=== PATIENT | male | born 1985 | race Caucasian/White ===

== ENCOUNTER 2017-03-09 19:06 | Emergency (ER) | payer OTHER ==
[2017-03-09] MEDS ORDERED: HYDROcod/ACETAM 5/325 MG TABLET PO STA (19:28)
--- NOTE | 2017-03-09 19:31 | ED Physician Documentation ---
PD HPI LOWER EXT INJURY - Stated complaint Stated Complaint: R FOOT INJ - Chief complaint Chief Complaint: Ext Problem - History obtained from History obtained from: Patient - History of Present Illness PD HPI LOW EXT INJURY LOCATION: Other (Sprinting tonight playing football and felt a pop in the area of the right Achilles tendon and now cannot walk or bear weight.) Review of Systems Constitutional: reports: Reviewed and negative Throat: reports: Reviewed and negative Cardiac: reports: Reviewed and negative PD PAST MEDICAL HISTORY - Past Medical History Past Medical History: No - Past Surgical History Past Surgical History: No - Present Medications Home Medications: Ambulatory Orders Medication Instructions Recorded Confirmed HYDROcod/ACETAM 5/325 [[place] 5/325] 1 - 2 ea PO Q6H PRN #10 tablet 03/09/17 - Allergies Allergies/Adverse Reactions: Allergies Allergy/AdvReac Type Severity Reaction Status Date / Time No Known Drug Allergies Allergy Verified 03/09/17 19:12 - Social History Does the pt smoke?: Yes Smoking Status: Current every day smoker Does the pt drink ETOH?: No Does the pt have substance abuse?: No - Immunizations Immunizations are current?: Yes - POLST Patient has POLST: No PD ED PE NORMAL - Vitals Vital signs reviewed: Yes - General General: Alert and oriented X 3, No acute distress, Well developed/nourished - Extremities Extremities: Other (He has pain with palpation of the Achilles tendon and no action with the Ross's test, no bony tenderness about the ankle. Normal pedal pulses.) - Neuro Neuro: Alert and oriented X 3, Normal speech - Psych Psych: Normal mood, Normal affect Results - Vitals Vitals: Vital Signs - 24 hr 03/09/17 19:10 Temperature 35.6 C L Heart Rate 120 H Respiratory 18 Rate Blood Pressure 145/99 H O2 Saturation 97 Oxygen O2 Source Room air Procedures - Splint (location) Right ankle Splint applied by: Tech Type of splint: Fiberglass, Short leg, Posterior, Other (In some plantarflexion) Other: Patient tolerated well, No complications, Neurovascular intact, Crutches provided Departure - Departure Disposition: 01 Home, Self Care Clinical Impression: Rupture of right Achilles tendon Qualifiers: Encounter type: initial encounter Qualified Code(s): S86.011A - Strain of right Achilles tendon, initial encounter Condition: Good Record reviewed to determine appropriate education?: Yes Instructions: ED Tendon Rupture Achilles Prescriptions: HYDROcod/ACETAM 5/325 [[place] 5/325] 1 - 2 ea PO Q6H PRN #10 tablet PRN Reason: Pain Comments: [place] Keep the splint on and dry until you follow-up, do not walk or bear weight on the right leg. Do not drink or drive while taking narcotic pain medication. Note that many narcotic pain relievers also contain Tylenol/acetaminophen. Please ensure that your total dose of acetaminophen from all sources does not exceed 3 g (3000 mg) per day. You may get constipated while on this medication. Take a stool softener such as Colace twice a day while you are on it. Also add an [id number]-[id number] laxative such as senna or MiraLAX on any day that you do not have a bowel movement. If you received a narcotic pain medication or sedative while in the emergency department, do not drive for the next 24 hours. Your blood pressure was elevated today on check into the emergency department. This does not mean that you have hypertension, it is a common phenomenon to come to the emergency department and have elevated blood pressure. I recommend that she see your primary care physician within the week to have it rechecked when you are feeling better.
[2017-03-09] MEDS ORDERED: HYDROcod/ACETAM 5/325 MG TABLET ONE (19:35)
[2017-03-09 19:53] VITALS: BP 135/94
== END 2017-03-09 19:53 | disposition home or self-care (01) ==
LOC: ED 19:06
DX: S86.011A Strain of right Achilles tendon, initial encounter (principal); X58.XXXA Exposure to other specified factors, initial encounter; Y93.02 Activity, running; Y93.61 Activity, american tackle football; R03.0 Elevated blood-pressure reading, without diagnosis of hypertension; F17.200 Nicotine dependence, unspecified, uncomplicated
CPT/HCPCS: 29515; 99283; 99284; A9270

== ENCOUNTER 2017-03-20 09:15 | Day surgery (SDC) | payer OTHER ==
[~2017-03-20 09:15] MED LIST: ACETAMINOPHEN 1,000 MG/100 ML 100 ML IV ONE; LACTATED RINGERS 1,000 ML IV ONE; ceFAZolin 2 GM/50 ML 2 GM/50 ML BAG IV ONE
[2017-03-20] MEDS ORDERED: BUPIVACAINE 0.25% PF 30 ML VIAL SUBQ ONE ×2 (14:34)
[2017-03-20] MEDS ORDERED: ROCURONIUM 50 MG/5 ML VIAL IVP ONE (15:00)
[2017-03-20] MEDS ORDERED: KETOROLAC 30 MG/ML VIAL IVP ONE (15:00)
[2017-03-20] MEDS ORDERED: ONDANSETRON 4 MG/2 ML VIAL IVP ONE (15:00)
[2017-03-20] MEDS ORDERED: LIDOCAINE-MPF 2% 5 ML VIAL IM ONE (15:00)
[2017-03-20] MEDS ORDERED: ACETAMINOPHEN 1,000 MG/100 ML 100 ML IV ONE (15:00)
[2017-03-20] MEDS ORDERED: DEXAMETHASONE 4 MG/ML VIAL IVP ONE (15:00)
[2017-03-20] MEDS ORDERED: fentaNYL 100 MCG/2 ML VIAL IVP ONE (15:00)
[2017-03-20] MEDS ORDERED: SUCCINYLCHOLINE 200 MG/10 ML VIAL IVP ONE (15:00)
[2017-03-20] MEDS ORDERED: MIDAZOLAM 2 MG/2 ML VIAL IVP ONE (15:00)
[2017-03-20] MEDS ORDERED: PROPOFOL 200 MG/20 ML VIAL IVP ONE (15:00)
[2017-03-20] MEDS ORDERED: LACTATED RINGERS 1,000 ML IV ONE (15:11)
[2017-03-20] MEDS: HYDROmorphone 1 MG/ML AMP ONE ×2 (17:05→17:10)
[2017-03-20] MEDS ORDERED: HYDROmorphone 1 MG/ML AMP ONE (17:20)
[2017-03-20] MEDS ORDERED: fentaNYL 100 MCG/2 ML VIAL ONE (17:20)
[2017-03-20] MEDS ORDERED: ONDANSETRON 4 MG/2 ML VIAL ONE (17:20)
[2017-03-20] MEDS ORDERED: oxyCODONE 5 MG TABLET ONE (17:48)
[2017-03-20 17:56] VITALS: BP 129/86
--- NOTE | 2017-03-21 07:11 | OPERATIVE REPORT ---
DATE OF SURGERY: 03/20/2017 00:00:00 PREOPERATIVE DIAGNOSIS: Right Achilles tendon rupture. POSTOPERATIVE DIAGNOSIS: Right Achilles tendon rupture. NAME OF PROCEDURE: Right Achilles tendon repair, CPT 37010. SURGEON: Jose Luis Byrd MD POSTOPERATIVE PLAN: Same-day surgery discharge. Nonweightbearing, in splint for 2 weeks. Transition t o oliverio and Lars protocol. INDICATION FOR SURGERY: This is a 31-year-old male, who sustained the above injury on the Feb while playing flag football. He was provisionally treated by the emergency room with a splint in neutral. I discussed operative and nonoperative management with the patient. The risks of surgery include pain, bleeding, infection, damage to nearby structures, lack of symptom relief, the need for further procedures, and wound healing complications. The benefits of this surgery would be to decreas e the re-rupture rate, with increased strength. The specific risks for the surgery are wound healing complications, implant complications, and infection. The patient is young and healthy, and is a forme r smoker, and he opted for surgical management. EXAMINATION UNDER ANESTHESIA: Resting posture 10 degrees of dorsiflexion, compared to 10 degrees of p lantar flexion on the contralateral side. No plantar flexion was produced with squeezing the calf com pared to 15 degrees of plantar flexion produced with squeezing the contralateral calf. A small sulcus was felt near the musculotendinous junction. SURGICAL FINDINGS: Complete rupture of the Achilles tendon 2 cm from the musculotendinous junction. IMPLANTS: 1. Suture tape x2 by [employer]. 2. SwiveLock x2 by [employer]. ANESTHESIA: General. ANTIBIOTICS: Weight-based Ancef. ESTIMATED BLOOD LOSS: 5 mL. URINE OUTPUT: Not recorded. INTRAVENOUS FLUIDS: 1 liter. TOURNIQUET TIME: 80 minutes at 250 mmHg. SPECIMENS: None. COMPLICATIONS: None. DISPOSITION: Stable to PACU. DVT PROPHYLAXIS: 325 mg of aspirin daily for 28 days. Early frequent ambulation. SCD while in the [facility]. PROCEDURE IN DETAIL: The patient was met in the preoperative hold area on the day of the procedure. T he operative site was signed, and consent was verified. He desired to proceed. He was brought to the operating room and surrendered to anesthesia. Once general anesthesia had been obtained, he was place d in the prone position, and all bony prominences were well padded. The arms were placed in a comfort able position. The contralateral limb was available for assessment during the procedure under the kait pes. An examination under anesthesia was performed. The limb was prepped and draped in the standard steril e fashion. A surgical time-out was held, where we confirmed the patient's identity, procedure, allerg ies, antibiotics, and images. All were in agreement, and we proceeded. An Esmarch was used to exsangu inate the limb, and the tourniquet was elevated to 250 mmHg. A 6 cm incision was made 1 cm medial to the midline over the Achilles tendon. Sharp dissection was brought down to the paratenon, and it was entered without disrupting the overlying tissue. The tenosynovium was dissected, and the tendons were circumferentially dissected with a finger. The tear was identified, and unhealthy tissue was debride d. Suture tape was placed in a Gutiérrez fashion, with 4 bites up and 4 bites down. A total of 2 strand s were used, leaving 4 strands coming out of the proximal tendon. The location of the tear was quite proximal, so the sutures needed to be placed on the dorsal aspect of the tendon, leaving the muscle f ree on the volar aspect. Two stab incisions were made over the heel, 1.5 cm apart from each other down to bone. Blunt dissecti on was carried out to spread the soft tissue. The banana suture passer was then placed through the di stal stump of the Achilles tendon, coming out one on the left and one on the right, essentially withi n the tendon itself. The previously placed sutures from the proximal remnant were passed through this location. A bump was placed under the toe to allow the foot to rest in a plantar flexed position and to directly oppose the 2 tendons stumps. Tension was held at 10 degrees more than the contralateral side in the resting position. I then drilled, tapped, and placed 2 SwiveLocks in the heel, holding te nsion as indicated above. Ross test had been restored. 0 Vicryl was placed in a Silf[place] fas hion in an epitendinous suture. The peritenon was then fenestrated volarly, laterally, and medially t o allow for a posterior closure. The wound was then irrigated copiously. The peritenon was closed wit h 0 Vicryl in a running fashion. The subdermal tissue was closed with 2-0 Vicryl, and the skin was cl osed with a nylon in a vertical mattress. The 2 stab incisions were closed with vertical mattresses. 20 mL of 0.25% Marcaine without epinephrine were placed around the wound. A sterile dressing was appl ied, and a splint was placed with the foot in a plantarflexed posture. The patient was awakened and t ransferred to the recovery room without issue. JOB #: [id number] EXT JOB #:[id number]
== END 2017-03-20 09:16 | disposition home or self-care (01) ==
LOC: SDS 09:15
PROVIDERS: ATTEND Orthopaedic Surgery
PROC: 0LQN0ZZ Repair Right Lower Leg Tendon, Open Approach (ICD-10-PCS; principal; 2017-03-20 11:00)
DX: S86.011A Strain of right Achilles tendon, initial encounter (principal); F17.210 Nicotine dependence, cigarettes, uncomplicated
CPT/HCPCS: 27650; A9270; C1713; J0131; J0690; J1170; J7120

== ENCOUNTER 2017-07-14 19:02 | Emergency (ER) | payer OTHER ==
[2017-07-14 19:21] VITALS: BP 146/105
[2017-07-14] MEDS ORDERED: DEXAMETHASONE 10 MG/ML VIAL PO STA (20:23)
[2017-07-14] MEDS ORDERED: FAMOTIDINE 20 MG TABLET PO STA (20:23)
[2017-07-14] MEDS ORDERED: diphenhydrAMINE 25 MG CAPSULE PO STA (20:23)
--- NOTE | 2017-07-14 20:24 | ED Physician Documentation ---
PD HPI SKIN - Stated complaint Stated Complaint: RASH - Chief complaint Chief Complaint: Allergic Rx - History obtained from History obtained from: Patient - History of Present Illness Timing - onset: How many days ago (2) Timing - details: Gradual onset Location: [place] Quality / character: Itchy, Raised Associated symptoms: No: Fever, Myalgias, Joint pain, Headache, Facial swelling , Dyspnea, Abd pain, N/V/D Similar symptoms before: Work up / diagnostics Recently seen: Clinic - Additional information Additional information: Patient is a 32 year old male presenting to the emergency department for an allergic reaction. Patient states that this weekend he was outside at a park with his son, a few hours later patient developed a rash. Patient followed up with his doctor and was started on prednisone and atarax. Patient states that it got a bit better but his symptoms came back so he came to the emergency department for evaluation. Review of Systems Constitutional: denies: Fever, Chills Eyes: denies: Decreased vision Ears: reports: Reviewed and negative Nose: reports: Reviewed and negative Throat: reports: Reviewed and negative Cardiac: denies: Chest pain / pressure Respiratory: denies: Dyspnea, Cough, Wheezing GI: denies: Abdominal Pain, Nausea, Vomiting : reports: Reviewed and negative Skin: reports: Rash Neurologic: reports: Reviewed and negative Psychiatric: reports: Reviewed and negative Immunocompromised: reports: Reviewed and negative PD PAST MEDICAL HISTORY - Past Medical History Cardiovascular: None Respiratory: None Endocrine/Autoimmune: None GI: None : None HEENT: None Psych: None Musculoskeletal: Other Derm: None - Past Surgical History Past Surgical History: No General: Appendectomy - Present Medications Home Medications: Ambulatory Orders Medication Instructions Recorded Confirmed No Known Home Medications [No 07/14/17 07/14/17 Known Home Medications] - Allergies Allergies/Adverse Reactions: Allergies Allergy/AdvReac Type Severity Reaction Status Date / Time No Known Drug Allergies Allergy Verified 07/14/17 19:21 - Social History Does the pt smoke?: Yes Smoking Status: Current every day smoker Does the pt drink ETOH?: No Does the pt have substance abuse?: No - Immunizations Immunizations are current?: Yes - POLST Patient has POLST: No PD ED PE NORMAL - Vitals Vital signs reviewed: Yes - General General: Alert and oriented X 3, No acute distress - HEENT HEENT: Atraumatic, PERRL, Moist mucous membranes, Pharynx benign - Neck Neck: Supple, no meningeal sign - Cardiac Cardiac: RRR, No murmur - Respiratory Respiratory: No respiratory distress, Clear bilaterally - Abdomen Abdomen: Non distended - Extremities Extremities: Normal ROM s pain, No edema - Neuro Neuro: Alert and oriented X 3, No motor deficit, No sensory deficit, Normal speech - Psych Psych: Normal mood PD ED PE EXPANDED - HEENT HEENT: Other (no tongue or soft tissue swelling) - Respiratory Respiratory: No: Accessory mm use, Retractions, Wheezing - Derm Derm: Rash, Urticaria (diffusely on trunk and upper extremities) Results - Vitals Vitals: Vital Signs - 24 hr 07/14/17 19:18 Temperature 36.8 C Heart Rate 101 H Respiratory 18 Rate Blood Pressure 146/105 H O2 Saturation 97 Oxygen O2 Source Room air PD MEDICAL DECISION MAKING - ED course Complexity details: reviewed old records, reviewed results, re-evaluated patient , considered differential, d/w patient ED course: Patient was seen and examined at bedside. Patient had generalized uticaria but no airway involvement. Patient was offered epinephrine but stated that he did not want it, and did not want to wait to be observed. Patient was treated with decadron, benadryl and pepcid with moderate relief. Patient required no further inpatient work up or testing and was stable for discharge with outpatient follow up. Departure - Departure Disposition: 01 Home, Self Care Clinical Impression: Allergic urticaria Condition: Good Instructions: ED Allergic Reaction General Other Follow-Up: Sanjuana Rodriguez ARNP [Primary Care Provider] - Within 3 Days Comments: Your symptoms today are being caused by an allergic reaction. It is difficult to say what it causing it exactly. You should continue with the steroids that have been prescribed and you can take benadryl and pepcid along with it. Ultimately you will need to follow up with your primary care doctor and possibly an construction mgr for further testing. Discharge Date/Time: 07/14/17 20:56
== END 2017-07-14 20:56 | disposition home or self-care (01) ==
LOC: ED 19:02
DX: L50.0 Allergic urticaria (principal); F17.200 Nicotine dependence, unspecified, uncomplicated
CPT/HCPCS: 99283; A9270

== ENCOUNTER 2019-04-08 16:31 | Emergency (ER) | payer OTHER ==
[2019-04-08 16:38] VITALS: BP 153/105
--- NOTE | 2019-04-08 16:53 | ED Physician Documentation ---
History of Present Illness - Stated complaint Stated Complaint: L EYE INJURY - Chief complaint Chief Complaint: Heent - Additonal information Additional information: This is a 33 year old male who Presents with irritation of his left eye. 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 He looked in the mirror and saw a small spot on his eye, and he was unable to remove it by flushing it so he presents here. He denies any change in his vision, no history of eye problems. He does not remember anything flying into the eye. he does not wear contacts. Review of Systems Constitutional: denies: Fever Eyes: reports: Irritation PD PAST MEDICAL HISTORY - Past Medical History Past Medical History: Yes Cardiovascular: None Respiratory: None Endocrine/Autoimmune: None GI: None : None HEENT: None Psych: None Musculoskeletal: Other Derm: None - Past Surgical History Past Surgical History: No General: Appendectomy - Present Medications Home Medications: Ambulatory Orders Medication Instructions Recorded Confirmed Erythromycin Base [Erythromycin 3.5 gm TOP QID 7 Days #1 tube 04/08/19 Ophthalmic Ointment] - Allergies Allergies/Adverse Reactions: Allergies Allergy/AdvReac Type Severity Reaction Status Date / Time No Known Drug Allergies Allergy Verified 04/08/19 16:38 - Social History Does the pt smoke?: Yes Smoking Status: Current every day smoker Does the pt drink ETOH?: No Does the pt have substance abuse?: No - Immunizations Immunizations are current?: Yes - POLST Patient has POLST: No PD ED PE NORMAL - Vitals Vital signs reviewed: Yes - General General: Alert and oriented X 3 - HEENT HEENT: Other (In the left eye in the approximate the 5 o'clock position from the pupil on the lower iris there is a less than 1 mm rust ring. Fluorescein stain reveals a small corneal abrasion around this resting, no River sign, no other areas of focal uptake. Extraocular muscles are intact. Visual acuity is normal. Eversion of the eyelid reveals no foreign body. With proparacaine drops patient's pain left eye resolved.) - Respiratory Respiratory: No respiratory distress - Extremities Extremities: No deformity - Neuro Neuro: Alert and oriented X 3 - Psych Psych: Normal mood, Normal affect Results - Vitals Vitals: Vital Signs - 24 hr 04/08/19 16:36 Temperature 36.5 C Heart Rate 78 Respiratory 20 Rate Blood Pressure 153/105 H O2 Saturation 98 Oxygen O2 Source Room air Procedures - General procedure General procedure: Corneal foreign body removal: After discussing the risks with patient including damage to the globe and cornea, proparacaine was instilled in the left eye and using a slit lamp and a 22-gauge needle, the rest ring was gently scraped. The bottom portion of the rest ring removed easily, however the top half remained in place, and in order to avoid damaging the cornea no further attempts were made to remove this. Erythromycin ointment was applied. He tolerated the procedure well, with no immediate complications. PD MEDICAL DECISION MAKING - ED course Complexity details: considered differential (Corneal foreign body, corneal abrasion, foreign body in the eyelid, ulcer, globe rupture) ED course: On exam patient has an obvious rust ring over the cornea overlying the left lower iris. With proparacaine his pain resolves completely. His visual acuity is normal, and fluorescein staining reveals no signs of globe rupture. I attempted to remove the rust ring and part of it came off easily but I was unable to remove the top of it and did not want to damage the cornea, I discussed with patient that the best path forward is to use erythromycin oi ntment as prescribed, and to follow-up with ophthalmology to get the resting burned out. Referral placed and Patient will also call his primary care provider to arrange for referral on Thursday. Patient agrees with this plan. I discussed return precautions including changes in his vision or any signs of infection, and patient was discharged home. Departure - Departure Disposition: Home, Self Care Clinical Impression: Corneal foreign body with residual material Qualifiers: Encounter type: initial encounter Laterality: left Qualified Code(s): T15.02XA - Foreign body in cornea, left eye, initial encounter Condition: Good Instructions: ED Foreign Body Cornea W Rust Ring Follow-Up: Dung Rivas MD [Provider Admit Priv/Credential] - Within 1 week (For follow up on rust-ring ) Prescriptions: Erythromycin Base [Erythromycin Ophthalmic Ointment] 3.5 gm TOP QID 7 Days #1 tube Comments: You were seen today for eye irritation, you have a rust ring, or small spot of rust where a piece of metal was on the outer surface of your eye. I was unable to remove all of the rust ring today, you need to see an eye doctor and they will lula this out. Call for an appointment within the next week. In the meantime please use erythromycin ointment 4 times a day to keep the eye moist and allow the corneal abrasion to heal and to prevent infection. If you are having any vision changes, increasing eye pain, or signs of infection such as whiteness/pus near your iris, return to the ED.
[2019-04-08] MEDS ORDERED: PROPARACAINE 0.5% OPHTH DROPS 15 ML LEFTEYE STA (17:12)
[2019-04-08] MEDS ORDERED: ERYTHROMYCIN OPHTH OINT 1 GM TUBE LEFTEYE STA (18:07)
== END 2019-04-08 18:31 | disposition home or self-care (01) ==
LOC: ED 16:31
DX: T15.02XA Foreign body in cornea, left eye, initial encounter (principal); W45.8XXA Other foreign body or object entering through skin, initial encounter; Y92.59 Other trade areas as the place of occurrence of the external cause; Y99.0 Civilian activity done for income or pay; F17.200 Nicotine dependence, unspecified, uncomplicated
CPT/HCPCS: 65222; 99282; J3490; 69200

== ENCOUNTER 2020-12-25 00:31 | Emergency (ER) | payer OTHER ==
--- NOTE | 2020-12-25 02:03 | ED Physician Documentation ---
History of Present Illness - Stated complaint Stated Complaint: COUGHING BLOOD - Chief complaint Chief Complaint: Resp - History obtained from History obtained from: Patient - History of Present Illness Timing: How many days ago (4) Improved by: nothing Worsened by: no exacerbating factors - Additonal information Additional information: c/o 4 days of bilateral sinus congestion, cough, chest congestion. Tonight he had two episodes of hemoptysis, sputum with bright red blood tinge. Denies fever. He is COVID vaccinated Review of Systems Constitutional: denies: Fever, Chills, Sweats Ears: denies: Ear pain Throat: denies: Sore throat Cardiac: denies: Chest pain / pressure, Pedal edema, Calf pain Respiratory: reports: Cough, Hemoptysis. denies: Dyspnea GI: reports: Reviewed and negative Musculoskeletal: denies: Extremity swelling PD PAST MEDICAL HISTORY - Past Medical History Cardiovascular: None Respiratory: None Endocrine/Autoimmune: None GI: None : None HEENT: None Psych: None Musculoskeletal: Other Derm: None - Past Surgical History Past Surgical History: No General: Appendectomy - Present Medications Home Medications: Ambulatory Orders Medication Instructions Recorded Confirmed Erythromycin Base [Erythromycin 3.5 gm TOP QID 7 Days #1 tube 04/08/19 Ophthalmic Ointment] Amox/Clav 875/125 [Augmentin 1 tablet PO Q12H 14 Days #28 tablet 12/25/20 875/125 Tab] guaiFENesin/CODEINE [Robitussin AC] 5 - 10 ml PO Q6H PRN #100 ml 12/25/20 - Allergies Allergies/Adverse Reactions: Allergies Allergy/AdvReac Type Severity Reaction Status Date / Time No Known Drug Allergies Allergy Verified 04/08/19 16:38 - Social History Does the pt smoke?: Yes Smoking Status: Current every day smoker Does the pt drink ETOH?: No Does the pt have substance abuse?: No - Immunizations Immunizations are current?: Yes - POLST Patient has POLST: No PD ED PE NORMAL - Vitals Vital signs reviewed: Yes - General General: Alert and oriented X 3, No acute distress, Well developed/nourished - HEENT HEENT: Moist mucous membranes - Cardiac Cardiac: RRR, No murmur - Respiratory Respiratory: No respiratory distress, Clear bilaterally - Abdomen Abdomen: Soft, Non tender - Derm Derm: Normal color, Warm and dry - Extremities Extremities: No edema Results - Vitals Vitals: Vital Signs - 24 hr 12/25/20 02:26 Heart Rate 72 Respiratory 18 Rate Blood Pressure 139/79 H O2 Saturation 99 Oxygen O2 Source Room air - Rads (name of study) chest xray Radiology: Prelim report reviewed, See rad report PD MEDICAL DECISION MAKING - ED course Complexity details: reviewed results, re-evaluated patient, considered differential, d/w patient Departure - Departure Disposition: 01 Home, Self Care Clinical Impression: Sinusitis, Hemoptysis Condition: Good Instructions: ED Hemoptysis, ED Sinusitis Abx Tx Follow-Up: [facility] [Provider Group] (3-4 days) Prescriptions: Amox/Clav 875/125 [Augmentin 875/125 Tab] 1 tablet PO Q12H 14 Days #28 tablet guaiFENesin/CODEINE [Robitussin AC] 5 - 10 ml PO Q6H PRN #100 ml PRN Reason: Cough Discharge Date/Time: 12/25/20 02:26
[2020-12-25] MEDS ORDERED: AMOX/CLAV 875 MG/125 MG TABLET PO STA (02:15)
[2020-12-25 02:26] VITALS: BP 139/79
--- NOTE | 2020-12-25 07:03 | XRAY Report ---
PROCEDURE: Chest 2 View X-Ray INDICATIONS: Respiratory signs and symptoms TECHNIQUE: 2 view(s) of the chest. COMPARISON: None. FINDINGS: Surgical changes and devices: None. Lungs and pleura: No pleural effusions or pneumothorax. Lungs are clear. Mediastinum: Mediastinal contours are normal. Heart size is normal. Bones and chest wall: No suspicious bony abnormalities. Soft tissues appear unremarkable. IMPRESSION: No acute cardiopulmonary process demonstrated radiographically. Reviewed by: Shabbir Mon MD on 12/25/2020 7:02 AM PDT Approved by: Shabbir Mon MD on 12/25/2020 7:02 AM PDT Station ID: [id number]
== END 2020-12-25 02:26 | disposition home or self-care (01) ==
LOC: ED 00:31
DX: J32.9 Chronic sinusitis, unspecified (principal); R04.2 Hemoptysis; F17.200 Nicotine dependence, unspecified, uncomplicated
CPT/HCPCS: 71046; 99283; 99284; A9270

== ENCOUNTER 2021-09-05 12:58 | Outpatient (CLI) | payer OTHER ==
[2021-09-05] MEDS ORDERED: GADOBUTROL 10 MMOL/10 ML VIAL ONE (13:19)
[2021-09-05] MEDS ORDERED: GADOBUTROL 10 MMOL/10 ML VIAL IVP ONE (16:21)
--- NOTE | 2021-09-05 16:28 | MRI Report ---
PROCEDURE: Brain W/WO INDICATIONS: NUMBNESS OF UPPER EXTREMIES AND FACE CONTRAST: IV CONTRAST: Gadavist ml: 8.7 TECHNIQUE: Noncontrast axial T1 spin echo, axial T2 fast spin echo, sagittal and axial FLAIR, coronal T2 fast sp in echo, axial gradient echo, axial diffusion and ADC through the brain. After the administration of contrast, axial and coronal T1 spin echo with fat saturation through the brain. COMPARISON: None. FINDINGS: Image quality: Excellent. CSF spaces: Basal cisterns are patent. No extra-axial fluid collections. Ventricles are normal in size and shape. Brain: No midline shift. No intracranial bleeds or masses. No abnormal intracranial enhancement. There is cerebral volume loss for age. There is periventricular white matter chronic small vessel is chemic change. The brainstem appears normal. Diffusion-weighted images demonstrate no acute ischemi c insults. No chronic ischemic insults. Normal intravascular flow voids are present. Dural sinuses demonstrate normal postcontrast enhancement. Skull and face: Calvarial marrow is normal in signal. Orbits appear normal. Sinuses: Small mucous retention cyst versus polyp noted in the right maxillary sinus. Mastoids appear clear. IMPRESSION: 1. No intracranial disease process. 2. No abnormal intracranial mass or mass effect. 3. No suspicious postcontrast enhancement. 4. No abnormal intracranial signal. Reviewed by: Mirta Nicolas MD, PhD on 09/05/2021 4:27 PM PDT Approved by: Mirta Nicolas MD, PhD on 09/05/2021 4:27 PM PDT Station ID: [id number]
== END 2021-09-05 12:59 | disposition home or self-care (01) ==
LOC: DI 12:58
PROVIDERS: ATTEND Family Medicine
DX: R20.0 Anesthesia of skin (principal)
CPT/HCPCS: 70553; A9585

== ENCOUNTER 2021-09-12 18:29 | Emergency (ER) | payer OTHER ==
--- NOTE | 2021-09-12 19:26 | ED Physician Documentation ---
History of Present Illness - Stated complaint Stated Complaint: HAND NUMBNESS - Chief complaint Chief Complaint: Neuro - History obtained from History obtained from: Patient - Additonal information Additional information: Patient with a history of hypertension presenting for evaluation of numbness to his right arm. Symptoms started at 1800 and lasted for approximately 30 minutes. It involved his right hand extending to his right forearm. He also reports involvement ofSecond and third fingers to his left hand, Mouth and teeth.His symptoms have since resolved. He denies visual disturbances. He reports he had a mild discomfort behind his left eye which is also improved. He has had the symptoms in the past. He reports approximately 4-6 episodes per year for the last 10 to 12 years. He recently started seeing his primary care doctor for these episodes and had an outpatient MRI. He is awaiting referral to neurology and was directed to come to the ED when he has these episodes by his PCP. He denies family history of strokes, migraines or aneurysms.He denies any known patterns or triggers to these episodes.Worked out earlier this afternoon but had not been working out at the onset of his symptoms.Denies a thunderclap headache.He had no symptoms today that he has not had previously. Review of Systems Ten Systems: 10 systems reviewed and negative Constitutional: denies: Fever Eyes: denies: Loss of vision, Decreased vision Ears: denies: Loss of hearing Nose: denies: Congestion Throat: denies: Sore throat Cardiac: denies: Chest pain / pressure, Palpitations Respiratory: denies: Dyspnea, Cough GI: denies: Abdominal Pain, Vomiting, Diarrhea : denies: Dysuria Skin: denies: Rash Musculoskeletal: denies: Neck pain, Back pain Neurologic: reports: Numbness, Headache (resolved). denies: Syncope, Seizure PD PAST MEDICAL HISTORY - Past Medical History Cardiovascular: None Respiratory: None Endocrine/Autoimmune: None GI: None : None HEENT: None Psych: None Musculoskeletal: Other Derm: None - Past Surgical History Past Surgical History: No General: Appendectomy Ortho: Other - Present Medications Home Medications: Ambulatory Orders Medication Instructions Recorded Confirmed Losartan [Cozaar] 50 mg PO 09/12/21 - Allergies Allergies/Adverse Reactions: Allergies Allergy/AdvReac Type Severity Reaction Status Date / Time No Known Drug Allergies Allergy Verified 04/08/19 16:38 - Social History Does the pt smoke?: Yes Smoking Status: Current every day smoker Does the pt drink ETOH?: No Does the pt have substance abuse?: No - Immunizations Immunizations are current?: Yes - POLST Patient has POLST: No PD ED PE NORMAL - General General: Alert and oriented X 3, No acute distress, Well developed/nourished - HEENT HEENT: Atraumatic, PERRL, EOMI, Moist mucous membranes, Pharynx benign - Neck Neck: Supple, no meningeal sign, No bony TTP - Cardiac Cardiac: RRR, No murmur, Strong equal pulses - Respiratory Respiratory: No respiratory distress, Clear bilaterally - Abdomen Abdomen: Normal bowel sounds, Soft, Non tender, Non distended - Derm Derm: Normal color, Warm and dry, No rash - Extremities Extremities: No deformity, No edema, Other (Palpable pulses in all 4 extremities) - Neuro Neuro: Alert and oriented X 3, oncology registrar 2-12 intact, No motor deficit, No sensory deficit, Normal speech, Other (Normal unassisted gait,Normal [id number] And rapid alternating movements bilaterally) Eye Opening: Spontaneous Motor: Obeys Commands Verbal: Oriented GCS Score: 15 - Psych Psych: Normal mood, Normal affect Results - Vitals Vitals: Vital Signs - 24 hr 09/12/21 09/12/21 09/12/21 18:35 18:40 20:15 Temperature 36.5 C Heart Rate 100 90 90 Respiratory 14 16 15 Rate Blood Pressure 137/91 H 124/80 124/80 O2 Saturation 97 97 96 Oxygen O2 Source Room air - EKG (time done) 1934 Rate: Rate (enter#) (80) Rhythm: NSR [place]: Normal Ischemia: No: ST elevation c/w ischemia, Hyperacute T waves Computer interpretation: Agree with computer - Labs Labs: Laboratory Tests 09/12/21 09/12/21 19:22 19:22 WBC 10.3 RBC 5.10 Hgb 14.7 Hct 42.3 MCV 82.9 MCH 28.8 MCHC 34.8 RDW 12.6 Plt Count 201 MPV 10.0 Neut # (Auto) 7.1 H Lymph # (Auto) 2.3 [place] # (Auto) 0.5 Eos # (Auto) 0.2 Baso # (Auto) 0.0 Absolute Nucleated RBC 0.00 Nucleated RBC % 0.0 Sodium 136 Potassium 3.2 L Chloride 102 Carbon Dioxide 23 Anion Gap 11.0 BUN 17 Creatinine 1.0 Estimated GFR (MDRD) 84 L Glucose 120 H Calcium 8.7 Total Bilirubin 0.7 AST 22 ALT 29 Alkaline Phosphatase 63 Total Protein 7.2 Albumin 4.4 Globulin 2.8 Albumin/Globulin Ratio 1.6 PD MEDICAL DECISION MAKING - ED course Complexity details: reviewed results, d/w patient ED course: Patient presenting for evaluation of paresthesias that have since resolved. Initial vital signs are stable. Neurologic exam is normal with no signs of stroke. Based on his presentation I also do not think he has had a TIA as symptoms do not fit one distribution. No signs of Intracranial hemorrhage or dissection. Patient has recently had an MRI which I reviewed and is unremarkable. EKG demonstrates a normal sinus rhythm with no arrhythmias noted on the clinical research monitor.No symptoms to suggest ACS or PE.Labs reviewed, mild hypokalemia.Patient has not had recurrence of his paresthesias while in the emergency department. Potassium pill was given. Patient is awaiting neurology follow-up and is comfortable with plan for discharge.Reviewed new or worsening symptoms for which he should return to the emergency department. Patient has no further questions. Departure - Departure Disposition: 01 Home, Self Care Clinical Impression: Paresthesia, Hypokalemia Condition: Stable Instructions: ED Potassium Deficiency, ED Paraesthesias Comments: Your evaluated today for numbness and tingling to various parts of your body as well as a headache. Your vital signs were stable and your labs were overall reassuring. Your potassium was slightly low and you were given a potassium pill.He recently had a brain MRI which did not show any significant abnormalities. The exact etiology of your symptoms is still unclear and that you will need to follow-up with a neurologist. Please Also follow-up with your primary care doctor in the next week. Return to the emergency department if you have new or worsening symptoms such as weakness to one area of your body, difficulty speaking, changes to your vision, worsening headache, any symptoms that are concerning to you. Discharge Date/Time: 09/12/21 20:15
[2021-09-12 19:28] LABS: BASOPHILS % (AUTO) 0.4 %; EOSINOPHILS # (AUTO) 0.2 10^3/uL (0.0-0.7); EOSINOPHILS % (AUTO) 1.9 %; HCT - HEMATOCRIT 42.3 % (42.0-52.0); HGB - HEMOGLOBIN 14.7 g/dL (14.0-18.0); LYMPHOCYTES # (AUTO) 2.3 10^3/uL (1.5-3.5); LYMPHOCYTES % (AUTO) 22.8 %; MEAN CORPUSCULAR HEMOGLOBIN 28.8 pg (27.0-31.0); MEAN CORPUSCULAR HGB CONC 34.8 g/dL (32.0-36.0); MEAN CORPUSCULAR VOLUME 82.9 fL (80.0-94.0); MONOCYTES # (AUTO) 0.5 10^3/uL (0.0-1.0); MONOCYTES % (AUTO) 5.2 %; NEUTROPHILS # (AUTO) 7.1 10^3/uL (1.5-6.6); NEUTROPHILS % (AUTO) 69.4 %; PLT - PLATELET COUNT 201 10^3/uL (130-450); RED CELL DISTRIBUTION WIDTH 12.6 % (12.0-15.0); WHITE BLOOD COUNT 10.3 x10^3/uL (4.8-10.8)
[2021-09-12 19:33] VITALS: BP 124/80
[2021-09-12 19:39] LABS: ALBUMIN 4.4 g/dL (3.2-5.5); ALBUMIN/GLOBULIN RATIO 1.6 (1.0-2.2); BILIRUBIN,TOTAL 0.7 mg/dL (0.2-1.0); CALCIUM 8.7 mg/dL (8.5-10.3); POTASSIUM 3.2 mmol/L (3.5-5.0); TOTAL PROTEIN 7.2 g/dL (6.7-8.2)
[2021-09-12] MEDS ORDERED: ACETAMINOPHEN 325 MG TABLET PO STA (19:39)
[2021-09-12] MEDS ORDERED: POTASSIUM CHLORIDE 20 MEQ TABLET PO STA (19:40)
== END 2021-09-12 20:15 | disposition home or self-care (01) ==
LOC: ED 18:29
DX: R20.2 Paresthesia of skin (principal); E87.6 Hypokalemia; F17.200 Nicotine dependence, unspecified, uncomplicated
CPT/HCPCS: 36415; 80053; 85025; 93005; 99284; A9270

== ENCOUNTER 2022-05-12 14:46 | Outpatient (CLI) | payer OTHER ==
--- NOTE | 2022-05-12 15:20 | SLEEP CARE CONSULTATION ---
Information from patient questionnaire entered by Mary Bermeo. I have reviewed and concur with the information entered by Mary Bermeo. This document represents the service I personally performed and the decisions made by me, Jareth Villafuerte MD, [facility]. History of Present Illness Service Date and Time: 05/12/2022 1446 Reason for Visit: New patient Chief Complaint: reports: Insomnia, Snoring, Observed pauses in breathing, Frequent awakenings at night Date of Onset: 2-3YRS Usual bedtime: 9PM Time it takes to fall asleep: 1HR Snores at night: Yes Observed to quit breathing while asleep: Yes Sleeps alone due to snoring: No Number of times waking at night: 3-4 Reasons for waking at night: reports: Snoring, Other (WATER) Toss, Turn, or Twitch while sleeping: Yes Recalls having dreams: No Usually gets out of bed at: 6AM Feels refreshed in the morning: No Morning headache: No Sleepy or fatigued during the day: Yes Ever fallen asleep while driving: No Takes day naps: No Dreams during day naps: No Prior sleep studies: No Additional HPI information: I had the pleasure of seeing Mr. Gutiérrez today regarding the possibility of him having a sleep disorder. As you know, he is a 36-year-old gentleman who complains of insomnia, frequent awakenings, loud snore, and observed apneas for 2 3 years. The patient tells me that he normally goes to bed around 9 pm, and it takes him approximately 60 minutes to fall asleep. He takes trazodone which helps occasionally. He has been told that he snores loudly and irregularly at night. He has also been observed to stop breathing in his sleep. His can still sleep in the same bed. He can recall waking up on the average of 3 - 4 times during the night. Most of the time he wakes up because of dry throat. He has awakened occasionally because of his own snoring, but not choking, or having to gasp for air. There is a lot of tossing and turning in his sleep. No somniloquy (sleep talking) or somnambulism (sleep walking). Generally, there is no recollection of dreams. In the morning he usually gets up out of the bed around 6 a.m. not feeling refreshed nor rested. He usually does not have a morning headache. During the day he complains of feeling sleepy and fatigued. His score on [place] Sleepiness Scale is 2 out of 24. He never has fallen asleep while driving nor has had any accident due to sleepiness. He usually does not take naps during the day. Upon falling asleep during the day, he denies having vivid dreams. He has never had sleep paralysis, experienced cataplexy but reports symptoms of restless leg syndrome. He denies having impaired concentration during the day. 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 Patient is and lives in [place]. Have you smoked in the past 12 months: Yes Cigarettes per day (20/pack): 10 Years of smokin Smoking Pack Years: 8.5 Alcohol use: Yes Alcohol amount and frequency: 1-2 DRINKS 1-2 TIMES A WEEK Caffeine use: Yes Caffeine amount and frequency: 2 DAILY Family History Family history of sleep disordered breathing: Yes Family Hx Sleep Apnea: Mother: Snoring, Sibling: Snoring, Grandparent: Snoring Allergies and Home Medications Known drug allergies: No Drug allergies reviewed: Yes Home medication list reviewed: Yes Allergy and home medication list: Allergies No Known Drug Allergies Allergy (Verified 12/05/21 15:43) Review of Systems Cardiovascular: reports: high blood pressure, have to sleep sitting up Respiratory: denies: shortness of breath, wheeze, sputum production, chronic cough, other Gastrointestinal: denies: heartburn, difficulty swallowing, nausea, vomitting, diarrhea, abdominal pain, other Urinary: denies: incontinence, frequency, urgency, impotence, other Neurological: reports: headaches, gait or balance problems Psychiatric: reports: anxiety, depression Ear/Nose/Throat: reports: nasal congestion, sinus problems, dry mouth/throat, wisdom teeth removed Endocrine: denies: thyroid disease, history of goiter, sluggishness, too hot or cold, excessive thirst, increased appetite, increased urination, unexplained weakness, other Musculoskeletal: reports: neck pain Immunologic: denies: sneezing, rash, itching, allergies to food or environment, other Physical Exam Vital signs obtained and entered by: MARY Borden MA Blood Pressure: 128/80 (LEFT ARM) Cuff size: regular Heart Rate: 81 O2 Saturation: 98 Height: 5 ft 9 in Weight: 184 lb 6.4 oz Body Mass Index: 27.2 BMI Classification: Overweight Neck circumference: 16.5 Mood/affect: Normal HEENT: No craniofacial malformation Nostrils: partially obstructed (right) Turbinates: normal Septum: deviated right Mouth and throat: narrow oropharynx Soft palate: long Hard palate: normal Uvula: normal Uvula visualization: 50% Mallampati Class II Tongue: normal in size Tonsils: small Chin and jaw: normal size and position Neck: normal w/o lymphadenopathy or thyromegaly Heart: regular rate and rhythm Lungs: clear bilaterally Extremities: no edema or clubbing Neurologic: intact Impression and Plan IMPRESSION: 1. Obstructive Sleep Apnea-Hypopnea Syndrome, as suggested by history of loud and irregular snoring, observed cessation of breath while asleep, frequent awakenings during the night, unrefreshed sleep, and daytime hypersomnolence. Narrow oropharynx and obesity are common predisposing factors for obstructive sleep apnea-hypopnea syndrome. Untreated obstructive sleep apnea can also cause hypertension. I recommend proceeding to polysomnography to confirm the diagnosis and to assess severity. I informed the patient of what the sleep studies involve and after some discussion, he agreed to proceed. Plan: 1. Schedule an in-laboratory polysomnography. 2. Avoid long distance driving or when feeling sleepy. 3. Avoid alcohol, sedative and muscle relaxant around bedtime. 4. Attempt to lose weight. 5. Return for follow up after the sleep study. Follow up with Sleep Care in: 1-2 months Visit Type: In Office Time Spent with Patient (minutes): 15 Provider Statement: I spent 100% of the Face to Face Visit with the patient with greater than 50% spent counseling the patient and coordination of care.
[2022-05-12 15:43] VITALS: BP 128/80
== END 2022-05-12 14:47 | disposition home or self-care (01) ==
LOC: SC 14:46
PROVIDERS: ATTEND Internal Medicine Pulmonary Disease
DX: R06.83 Snoring (principal); G47.8 Other sleep disorders; R06.81 Apnea, not elsewhere classified; G47.00 Insomnia, unspecified; R53.83 Other fatigue; I10 Essential (primary) hypertension; F32.A Depression, unspecified; E66.3 Overweight; Z68.27 Body mass index [BMI] 27.0-27.9, adult; F17.210 Nicotine dependence, cigarettes, uncomplicated
CPT/HCPCS: 99202; 99212

== ENCOUNTER 2022-07-06 19:27 | Outpatient (CLI) | payer OTHER | END 2022-07-06 19:28 | disposition home or self-care (01) | LOC: SC 19:27 | PROVIDERS: ATTEND Internal Medicine Pulmonary Disease | DX: R06.83 Snoring (principal); G47.8 Other sleep disorders; R06.81 Apnea, not elsewhere classified; G47.00 Insomnia, unspecified; R53.83 Other fatigue; I10 Essential (primary) hypertension; F32.A Depression, unspecified | CPT/HCPCS: 95810 ==

== ENCOUNTER 2022-07-09 11:22 | Outpatient (CLI) | payer OTHER ==
[2022-07-09 11:48] VITALS: BP 112/76
--- NOTE | 2022-07-09 11:48 | SLEEP CARE CONSULTATION ---
Information from patient questionnaire entered by Karin Bermeo. I have reviewed and concur with the information entered by Karin Bermeo. This document represents the service I personally performed and the decisions made by , Nichelle Rosa ARNP. History of Present Illness Service Date and Time: 07/09/2022 112 Initial [place] Sleepiness Scale score: 2 (05/12/22) Current [place] Sleepiness Scale score: 16 (07/09/22) Additional HPI information: PAULINE CORONA returns for follow up and results of the recently performed polysomnography. The patient was informed of the following findings: No significant sleep disordered breathing with an average AHI of 2.4 and basim oxygen saturation of 87%. I explained the pathophysiology behind obstructive sleep apnea. Patient does not have sleep apnea and was advised how weight gain could increase the risk of developing sleep apnea in the future. I strongly encouraged the patient to lose weight. Patient has loud snoring. Snoring can be reduced by weight loss. Weight loss is best achieved with diet consult. Patient instructed to contact PCP for referral. Snoring can also be treated with an oral appliance from a dentist. Advised to check insurance coverage. In addition, an ENT evaluation can be do to see if other treatment is indicated. Patient counseled not drink alcohol less than 4 hours before bedtime as it can increase snoring and apnea. Patient was cautioned about risks of drowsy driving until sleepiness symptoms resolve. Sleep Study - Results Type of Sleep Study: Polysomnography (COMPLETED 07/06/22) Prior sleep studies: No Polysomnography/Home Sleep Study results: IMPRESSION: The quality of the study is good. The patient had normal sleep efficiency. The sleep architecture was relatively normal as well considering the first night effect. Respiratory monitoring showed no significant sleep disordered breathing (AHI = 2.4) or hypoxia (basim oxygen saturation of 87% and only 0.2% to the total sleep time was spent with oxygen saturation below 90%). The patient slept mostly supine (supine AHI = 2.9; non-supine = 0.00). Snore was loud in intensity. There was no significant periodic leg movement of sleep. Cardiac rhythm was normal sinus rhythm without significant arrhythmia. No abnormal behavior (parasomnia) observed during the night. Allergies and Home Medications Drug allergies reviewed: Yes (NKDA) Home medication list reviewed: Yes (no changes) Review of Systems Review of systems same as previous: Yes (no changes) Physical Exam Vital signs obtained and entered by: KARIN Borden MA Blood Pressure: 112/76 (LEFT ARM) Cuff size: regular Heart Rate: 77 O2 Saturation: 97 Height: 5 ft 9 in Weight: 192 lb 9.6 oz Body Mass Index: 28.4 BMI Classification: Overweight Impression and Plan Snoring but no significant sleep disordered breathing. Patient advised that often weight loss will reduce snoring as well as apnea risk. An oral appliance can also be used for snoring. This would require a dental consultation. Patient cautioned not to use other online appliances as can cause bite issues. A list of accredited dentists in [facility] and one local dentist who makes oral appliances is available in our office. Patient is advised to check if insurance will cover. An ENT consult can also be helpful to determine if any other treatment is an option. * Attempt to lose weight * Avoid alcohol consumption near bedtime * The patient is cautioned about driving until sleepiness is completely resolved. * Return as needed for follow up. Counseling Topics: Weight loss health impact Visit Type: In Office Time Spent with Patient (minutes): 10 Provider Statement: I spent 100% of the Face to Face Visit with the patient with greater than 50% spent counseling the patient and coordination of care.
== END 2022-07-09 11:23 | disposition home or self-care (01) ==
LOC: SC 11:22
PROVIDERS: ATTEND Nurse Practitioner Family
DX: R06.83 Snoring (principal); E66.3 Overweight; Z68.28 Body mass index [BMI] 28.0-28.9, adult
CPT/HCPCS: 99212

== ENCOUNTER 2023-06-20 13:47 | Emergency (ER) | payer OTHER ==
[2023-06-20 14:04] VITALS: BP 151/106; O2SAT 98
[2023-06-20] MEDS ORDERED: traMADol 50 MG TABLET PO STA (18:02)
--- NOTE | 2023-06-20 18:06 | ED Physician Documentation ---
PD HPI NECK PAIN - Stated complaint Stated Complaint: NECK PX - Chief complaint Chief Complaint: Back Pain - Additional information Additional information: 38-year-old male with bulging disc at C5 and C6. Presents to the emergency department today for tramadol. Patient says he normally gets 8 tramadol a month but has not been able to get in with his primary care provider for refill of this medication and feels like the pain is too hard or he cannot deal with it anymore. He is requesting 1 tramadol here in the emergency department and requesting a very small prescription until he is able to get in with his primary care provider hopefully within the next week. He has had no trauma or new injuries to his neck denies any fevers or chills. PD PAST MEDICAL HISTORY - Past Medical History Past Medical History: Yes Cardiovascular: None Respiratory: None Neuro: Migraines Endocrine/Autoimmune: None GI: None : None HEENT: None Psych: Depression, Anxiety, Post traumatic stress disorder Musculoskeletal: Other Derm: None Other Past Medical History: Neck pain - Past Surgical History Past Surgical History: No General: Appendectomy Ortho: Other - Present Medications Home Medications: Ambulatory Orders Medication Instructions Recorded Confirmed Losartan [Cozaar] 50 mg PO 09/12/21 DULoxetine [Cymbalta] See Rx Instructions .ROUTE .COMPLEX 05/12/22 05/12/22 Lamotrigine [Lamictal (Blue)] See Rx Instructions .ROUTE .COMPLEX 05/12/22 05/12/22 traZODone [Desyrel] See Rx Instructions .ROUTE .COMPLEX 05/12/22 05/12/22 traMADol [Ultram] 50 mg PO Q4-6H 3 Days #3 tablet 06/20/23 - Allergies Allergies/Adverse Reactions: Allergies Allergy/AdvReac Type Severity Reaction Status Date / Time lisinopril Allergy Respiratory Verified 06/20/23 14:02 - Social History Does the pt smoke?: Yes Smoking Status: Current every day smoker Does the pt drink ETOH?: No Does the pt have substance abuse?: No - Immunizations Immunizations are current?: Yes - POLST Patient has POLST: No PD ED PE NORMAL - Vitals Vital signs reviewed: Yes - General General: Alert and oriented X 3, No acute distress - HEENT HEENT: Atraumatic, PERRL - Neck Neck: Supple, no meningeal sign, No bony TTP - Cardiac Cardiac: RRR - Respiratory Respiratory: No respiratory distress - Back Back: No CVA TTP, No spinal TTP, Other (Some musculoskeletal tenderness with palpation) - Derm Derm: Normal color, No rash - Extremities Extremities: No deformity, No tenderness to palpate, Normal ROM s pain Results - Vitals Vitals: Vital Signs - 24 hr 06/20/23 13:57 Temperature 35.9 C L Heart Rate 64 Respiratory 18 Rate Blood Pressure 151/106 H O2 Saturation 98 Oxygen O2 Source Room air PD Medical Decision Making - ED course ED course: 38-year-old male here for neck pain. Patient reports that he has bulging disc at C5 and C6 and is in touch with the neurosurgeon. The plan is to not do surgical intervention at this time. Patient is normally on tramadol he usually gets 8 pills a month and has not been able to get any pills for the month of June and has been having a hard time getting into his primary care provider due to the holidays. Patient says that he does not normally come to the emergency department but feels like he cannot handle the pain anymore he was given a one-time dose of tramadol here in the ER and was given a couple days of tramadol to support him until he is able to get in with his primary care provider. Patient was educated the importance of getting in with his primary care provider and to try to not utilize emergency department for chronic pain management. He understands and says that he will make every effort to get into his primary care provider this week. Safe for discharge. No imaging is warranted as there has been no new trauma or change in pain according to patient. Departure - Departure Disposition: 01 Home, Self Care Clinical Impression: Pain Condition: Good Instructions: ED Chronic Pain Management Prescriptions: traMADol [Ultram] 50 mg PO Q4-6H 3 Days #3 tablet Discharge Date/Time: 06/20/23 18:32
== END 2023-06-20 18:32 | disposition home or self-care (01) ==
LOC: ED 13:47
DX: Z76.0 Encounter for issue of repeat prescription (principal); M54.2 Cervicalgia; F17.200 Nicotine dependence, unspecified, uncomplicated
CPT/HCPCS: 99282; 99283; A9270